=== PATIENT | female | born 1965 | race Two or more races ===

== ENCOUNTER 2019-08-04 15:03 | Outpatient (CLI) | payer OTHER | END 2019-08-04 15:16 | disposition home or self-care (01) | LOC: RAD 15:03 | DX: M25.561 Pain in right knee (principal); M25.562 Pain in left knee ==

== ENCOUNTER 2021-09-04 15:18 | Outpatient (CLI) | payer OTHER | END 2021-09-04 15:33 | disposition home or self-care (01) | LOC: RAD 15:18 | PROVIDERS: ATTEND Orthopaedic Surgery | DX: M25.572 Pain in left ankle and joints of left foot (principal) ==